=== PATIENT | female | born 1975 | race Caucasian/White ===

== ENCOUNTER → 2021-04-20 | Outpatient (CLI) | payer OTHER ==
[~2021-04-20] MED LIST: KEPPRA1000 MG PO
== END ==
LOC: MAMO 03-24 10:00
DX: Z12.31 Encounter for screening mammogram for malignant neoplasm of breast (principal)
CPT/HCPCS: 77063; 77067

== ENCOUNTER → 2021-04-29 | Outpatient (CLI) | payer OTHER | LOC: US 14:10 | DX: R92.8 Other abnormal and inconclusive findings on diagnostic imaging of breast (principal); R59.0 Localized enlarged lymph nodes | CPT/HCPCS: 76641 ==

== ENCOUNTER → 2021-11-01 | Outpatient (CLI) | payer OTHER | LOC: US 10-27 11:00 | DX: R92.8 Other abnormal and inconclusive findings on diagnostic imaging of breast (principal) | CPT/HCPCS: 76641-LT ==